=== PATIENT | female | born 1995 | race African-American/Black ===

== ENCOUNTER 2019-05-12 17:36 | Emergency (ER) | payer MEDICAID ==
[~2019-05-12] VITALS: Ht 170.2 cm; Wt 56.0 kg
[2019-05-12 18:09] VITALS: BP 116/71
== END 2019-05-12 19:30 | disposition home or self-care (01) ==
LOC: ER 17:36
DX: K14.0 Glossitis (principal); F12.10 Cannabis abuse, uncomplicated
CPT/HCPCS: 99281